=== PATIENT | female | born 2000 | race Caucasian/White ===

== ENCOUNTER 2020-03-19 14:44 | Emergency (ER) | payer OTHER ==
[~2020-03-19] VITALS: Ht 162.6 cm; Wt 79.2 kg
[2020-03-19] MEDS ORDERED: JOLETAB PO (16:17)
[2020-03-19] MEDS ORDERED: MELA1LIQ2 PO (16:17)
[2020-03-19] MEDS ORDERED: LIDOCAINE W/EPINEPHRINE 1% 20ML VIAL SC ONE (17:15)
[2020-03-19] MEDS ORDERED: EMLA CREAM 5GM TUBE (LIDOCAINE/PRILOCAINE) TOP ONE (17:15)
[2020-03-19 18:12] VITALS: BP 136/83
[2020-03-19] MEDS ORDERED: LIDOCAINE 5% OINT 30 GM TOP ONE (19:45)
== END 2020-03-19 18:13 | disposition home or self-care (01) ==
LOC: M ED 14:44
DX: K64.5 Perianal venous thrombosis (principal); K62.89 Other specified diseases of anus and rectum

== ENCOUNTER 2020-03-19 19:44 | Emergency (ER) | payer OTHER ==
[~2020-03-19] VITALS: Ht 162.6 cm; Wt 78.7 kg
[~2020-03-19 19:44] MED LIST: JOLETAB PO; MELA1LIQ2 PO
[2020-03-19] MEDS ORDERED: LIDOCAINE 5% OINT 30 GM As Ordered ONE (19:48)
[2020-03-19] MEDS ORDERED: LIDOCAINE 5% OINT 30 GM TOP ONE (20:00)
[2020-03-19 21:17] VITALS: BP 129/74
== END 2020-03-19 21:22 | disposition home or self-care (01) ==
LOC: M ED 19:44
DX: K64.5 Perianal venous thrombosis (principal)

== ENCOUNTER → 2024-10-01 | Outpatient (CLI) | payer OTHER ==
[~2024-10-01] MED LIST changes: +METHACHOLINE KIT (6 VIAL.NEB PREMIX) INH ONE
== END ==
LOC: M CARPUL 12:36
PROVIDERS: ATTEND Physician Assistant
DX: R06.02 Shortness of breath (principal)
CPT/HCPCS: 94070; 95070; J7674

== ENCOUNTER → 2024-10-07 | Outpatient (CLI) | payer OTHER ==
[~2024-10-07] MED LIST changes: -METHACHOLINE KIT (6 VIAL.NEB PREMIX) INH ONE
== END ==
LOC: M PLAIMG 14:52
PROVIDERS: ATTEND Physician Assistant
DX: R06.02 Shortness of breath (principal); Z65.5 Exposure to disaster, war and other hostilities